=== PATIENT | female | born 1940 | race Caucasian/White ===

== ENCOUNTER 2017-08-19 06:15 | Inpatient (IN) | payer MEDICARE ==
[~2017-08-19] VITALS: Ht 162.6 cm; Wt 73.5 kg
[2017-08-19 06:15] VITALS: BP 104/49
[~2017-08-19 06:15] MED LIST: ACTOS 30 MG TAB30 M1; ACTOS 30 MG TAB30 M1 PO; ACULAR LS5 ML OPHTHALMIC; ALBUTEROL INH; ALTACE 1.25 M1.25 M1 PO; ALTACE2.5 MG PO; ARICEPT 5 MG TAB5 MG PO; ASPIRIN EC81 M1 PO; ASTELIN30 ML; ASTELIN30 ML INH; ASTEPRO205.5 MCG/ NASAL; ASTEPRO205.5 MCG/ NS; ATORVASTATIN CA40 MG PO; AVELOX 400 MG400 M1 PO; AZITHROMYCIN 2250 MG PO; CALCIUM 600 +1 EAC1 PO; CALCIUM 600 +1 EAC5 PO; CEFDINIR300 MG PO; CEPHALEXIN 500500 M3 PO; COLACE CLEAR50 MG PO; DICLOFENAC SODI75 MG PO; DIFLUCAN200 MG PO; DUONEB 2.5-0.5 M3 ML INH; ELIQUIS5 MG PO; FLEXERIL PO; FLONASE 0.05%50 MCG INH; FLONASE 0.05%50 MCG NASAL; GABAPENTIN 100100 MG PO; GLUCOPHAGE500 MG PO; GLYBURIDE 1.21.25 M1 PO; GLYBURIDE 2.52.5 MG PO; HYDROCODONE-AP1 EAC6 PO; IBUPROFEN 600600 M1 PO; INTEGRA PLUS C1 EAC1 PO; ISOSORBIDE MONO30 M1 PO; KEFLEX500 MG PO; LASIX 20 MG TAB20 MG PO; LEVAQUIN 500 M500 M2 PO; LIDOCAINE1 EACH TRANSDERM; LIDOCARE1 EACH TOP; LISINOPRIL5 MG PO; MEDROLDOSEPACK PO; MILK OF MA400 MG/5 M PO; MIRALAX17 GM PO; MOBIC7.5 M1 PO; MUCINEX TA600 MG/TA1 PO; MUCINEX1200 MG PO; MUCINEX600 MG PO; NABUMETONE 500500 M1 PO; NITROGLYCERIN0.4 MG SUBLING; NORCO 5-325 TA1 EACH PO; NYSTATIN100000 UNI SW&SWALLOW; OMEPRAZOLE20 M2 PO; ONDANSETRON HCL4 M2 PO; PACERONE 200 M200 M1 PO; PENTOXIFYLLINE400 MG PO; PREDNISONE 10 M10 M1 PO; PREDNISONE 10 M10 MG PO; PREDNISONE 20 M20 M1 PO; PREDNISONE 5 MG5 M1 PO; PREDNISONE50 MG PO; PROAIR HFA8.5 GM PO; PROMETHAZINE D480 ML PO; PROTONIX 20 MG20 M1 PO; RAMIPRIL PO; SINGULAIR 10 MG10 M1 PO; SPIRIVA INH; SYMBICORT160 MCG/4. INH; THEO-24200 MG PO; THEOPHYLLINE S200 M1 PO; TOBRAMYCIN SULFA5 ML; TOPROL XL25 MG PO; TYLENOL325 MG PO; VALIUM5 MG PO; VICODIN 5-5001 EACH PO; VISION VITAMIN1 EAC1 PO; VITAMIN D1000 UNI1 PO; ZOCOR40 MG PO; ZOFRAN4 MG PO; ZPAK PO
[2017-08-19 07:06] LABS: HEMATOCRIT 28.6 % (37.0-47.0); HEMOGLOBIN 8.9 gm/dL (12.0-15.0); MCH 25.7 pg (26.0-34.0); MCHC 31.1 g/dL (28.0-37.0); MCV 82.6 fL (80.0-100.0); MPV 7.6 fl. (7.2-11.1); NUCLEATED RBCS 0 /100WBC; PLATELET COUNT* 538 thou/uL (150-400); RBC 3.46 mil/uL (4.20-5.00); RDW-CV 19.9 % (10.5-14.5); WBC 21.9 thou/uL (4.0-11.0)
[2017-08-19 07:08] LABS: CALCIUM 9.2 mg/dL (8.5-10.1); CREATININE 1.1 mg/dL (0.6-1.3); POTASSIUM 3.4 mmol/L (3.5-5.1)
[2017-08-19 07:09] LABS: PROTIME 10.2 Seconds (9.20-11.50)
[2017-08-19 07:19] LABS: ALBUMIN 2.6 g/dL (3.4-5.0); TOTAL BILIRUBIN 0.3 mg/dL (<0.1-1.0)
[2017-08-19 07:41] LABS: ABSOLUTE LYMPHOCYTES 2.4 thou/uL (0.8-5.3); ABSOLUTE MONOCYTES 1.3 thou/uL (0.0-1.2); ABSOLUTE NEUTROPHILS 18.2 thou/uL (1.6-8.1); PLATELET ESTIMATE ADEQUATE
[2017-08-19 08:06] LABS: URINE BILIRUBIN NEGATIVE (Negative); URINE BLOOD 1+ (Negative); URINE CLARITY CLOUDY; URINE COLOR YELLOW; URINE GLUCOSE-RANDOM NEGATIVE (Negative); URINE KETONES NEGATIVE (Negative); URINE PROTEIN TRACE (Negative); URINE UROBILINOGEN 0.2 E.U./dl (0.2-1.0)
[2017-08-19 08:08] LABS: URINE LEUKOCYTES-REFLEX 2+ (Negative); URINE NITRITE-REFLEX POSITIVE (Negative)
[2017-08-19 08:15] LABS: HYALINE CASTS 0-3 Few /LPF (None Seen); SQUAMOUS 4-10 Moderate /LPF (0-3)
[2017-08-19 08:16] LABS: AMORPHOUS URATES Moderate /LPF (None Seen); BACTERIA-REFLEX >30 Many /HPF (None Seen); URINE RBC 0-2 Rare /HPF (0-2); URINE WBC-REFLEX >25 Many /HPF (0-5)
[2017-08-19 08:45] VITALS: BP 95/50
[2017-08-19 10:00] VITALS: BP 105/47
--- NOTE | 2017-08-19 15:40 | NUR ---
PATIENT IS A NEW ADMIT WITH WOUNDS RELATED TO HER FALL AND FRACTURE. i TOOK A PHOTO OF THE WOUND ON HER LEFT ELBOW AND PACED IT IN THE CHART. ORTHO SPLINTED THE RIGHT LOWER EXTRMETY IN THE EMERGENCY ROOM. I DID NOT REMOVE THE SPLINTING AND DRESSING TO TAKE PHOTOS BECAUSE I DID NOT WANT TO DISTURB THE SPLINTING AND CAUSE HER FURTHER PAIN. WILL HAVE NURSING TAKE PHOTOS WHEN DRESSING IS REMOVED AND THIS IS AN OPTION.
[2017-08-19 16:00] VITALS: BP 93/41
--- NOTE | 2017-08-19 16:59 | NUR ---
ASSUMED CARE OF PATIENT AFTER TRANSFER OF CARE. ALERT AND ORIENTED X4. AGREE WITH PREVIOUS NURSES ASSESSMENT. PATIENT HAS HAD NO COMPLAINTS OF NAUSEA THIS SHIFT. PAIN HAS BEEN MANAGED WITH PAIN MEDICATION. ASSESSED WOUND ON LEFT ELBOW AND TOOK PHOTOS FOR DOCUMENTATION. PATIENT HAS A SKIN TEAR OR WOUND ON RIGHT LOWER EXTREMITY, THIS INFORMATION WAS PASSED ALONG IN REPORT BUT PHOTO DOCUMENTATION WAS NOT COMPLETED. SEE NOTE FOR SPECIFICS ON THIS. PATIENT IS RESTING COMFORTABLY IN BED WITH GRANDSON AT BEDSIDE AT THIS TIME. HOURLY ROUNDS HAVE BEEN MAINTAINED. CALL LIGHT IS WITHIN REACH. NURSING WILL CONTINUE TO MONITOR.
[2017-08-19 21:15] VITALS: BP 103/35
[2017-08-20 04:22] VITALS: BP 111/40
--- NOTE | 2017-08-20 05:12 | NUR ---
Alert and oriented x 4. She is on bedrest and has a right femur fracture. She has right leg in long splint with acewrap and it's intact and elevated. Left leg has 2+ pitting edema and she states that shehas a history of CHF. Her lungs are coarse and wheezing she did have a recent pneumonia and has COPD. She wears home O2 at 2L n/c, she has required 4L n/c just to keep sat at 92%. Her BP was very low it was reported to and orders were recieved. After IVF bolus BP has improved. She's had pain meds x 2. She voids per bedpan. She has slept intermittenly.
[2017-08-20 06:59] VITALS: BP 111/40
--- NOTE | 2017-08-20 07:00 | NUR ---
CALLED DR. PADILLA TO INFORM HIM OF POSITIVE UA, AND LAB RESULTS. PATIENT MAY HAVE SURGERY TODAY. NEEDING CLEARANCE. LEVRAMANDEEP ORDERED.
[2017-08-20 07:52] VITALS: BP 108/52
[2017-08-20 10:19] VITALS: BP 111/36; BP 119/43; BP 122/46; BP 130/68; BP 134/72
--- NOTE | 2017-08-20 11:06 | NUR ---
INFORMED DR. PADILLA THAT PATIENT DOES HAVE SAKSHI CRACKLES IN LOWER LOBES. PATIENT CURRENTLY RECIEVING 1 UNIT PRBC'S. PATIENT PLACED BACK TO 4L O2 FROM 2L. DR. PADILLA WILL ADD LASIX POST TRANSFUSION.
--- NOTE | 2017-08-20 13:30 | NUR ---
SPOKE WITH MARIAH IN PACU. INFORMED MARIAH PATIENT WOULD BE GETTING 40MG IV LASIX PRIOR TO TRANSFER TO PACU. ALSO INFORMED HER PATIENT IS REQUIRING 6L O2 TO KEEP SATS >92%. SAT ON 4L 86%. PATIENT SOB IN THE BED. DR. PADILLA INFORMED. BLOOD TRANSFUSION COMPLETE.
--- NOTE | 2017-08-20 14:11 | NUR ---
PATIENT TRANSFERRED TO SURGERY AT THIS TIME.
--- NOTE | 2017-08-20 14:17 | NUR ---
UNABLE TO SEE PT.TODAY. SHE WAS OFF THE FLOOR IN SURGERY.
[2017-08-20 14:37] LABS: HEMATOCRIT 33.3 % (37.0-47.0); HEMOGLOBIN 10.7 gm/dL (12.0-15.0)
--- NOTE | 2017-08-20 15:15 | CON ---
[address] [address] CONSULTATION Name: MAVIS RIZZO Room: [address] IN [facility]#: [id number] Admission: 08/19/17 Attend Phys: Ryder Diaz Discharge: Date of : 44 Report #: [id number] THIS REPORT FOR: //name// CC: Ajay Cisse DICTATED BY: Osito Falk DO DATE OF SERVICE: 08/19/2017 REASON FOR CONSULTATION: Right distal femur fracture. HISTORY OF PRESENT ILLNESS: The patient is a pleasant 77-year-old female who presented to the Emergency Department this morning with acute onset of pain just above her right knee after she had a fall this morning. She was walking to the bathroom when her walker slid out in front of her. She fell directly onto her right side. She was unable to bear weight. She felt a pop just above her knee. She was brought to the hospital where x-rays were taken. She was found to have a distal femur fracture for which our services are consulted. She currently denies any numbness or tingling down her right leg. She denies any inability to move her right lower extremity. She does complain of some mild left ankle and left shoulder pain. Of note, she just finished a stay at [facility] where she was recovering from pneumonia. PAST MEDICAL HISTORY: Pneumonia, macular degeneration, breast cancer, osteoporosis, plantar fasciitis, chronic obstructive pulmonary disease, congestive heart failure. PAST SURGICAL HISTORY: Right total hip arthroplasty 01/[address] Forrest, lumpectomy, hysterectomy, carpal tunnel bilaterally. FAMILY HISTORY: Noncontributory. SOCIAL HISTORY: Denies any alcohol or tobacco use. REVIEW OF SYSTEMS: A 12-point review of systems otherwise negative except for the above-mentioned HPI. MEDICATIONS: Available in the [facility]. ALLERGIES: PEANUTS, PENICILLIN, SULFA, CODEINE, AND MORPHINE. PHYSICAL EXAMINATION: GENERAL: Alert and oriented, no acute distress. HEENT: Head normocephalic, atraumatic. Eyes: Extraocular motion intact. Ears are normal. Mouth, [place] [address] CONSULTATION Name: MAVIS RIZZO Room: [address]#: [id number] Admission: 08/19/17 Attend Phys: Ryder Diaz Discharge: Date of : 44 Report #: [id number] NECK: Supple. CARDIOVASCULAR: Cap refill brisk. ABDOMEN: Soft. MUSCULOSKELETAL: The right lower extremity demonstrates soft thigh compartments as well lower extremity compartment. She is able to plantarflex and dorsiflex and move her big toe actively and passively without pain. Sensation is intact in the superficial and deep peroneal nerve distributions as well as tibial nerve distribution. There is some generalized swelling in the area of the right distal femur as well as tenderness to palpation in this area. Mild to moderate effusion is present about the knee. There is a small abrasion of the right knee. Otherwise, global musculoskeletal exam reveals some mild tenderness with left ankle range of motion as well as left shoulder; however, range of motion is full with minimal discomfort. IMAGING: X-rays of the right femur demonstrate a previous well aligned right total hip prosthesis. There is a comminuted supracondylar distal femur fracture with an intra-articular T-shaped split. Alignment is overall acceptable. It is moderately displaced. X-rays of the left shoulder and left ankle demonstrate some mild to moderate degenerative change without any obvious fracture. IMPRESSION: 1. Right comminuted intraarticular supracondylar distal femur fracture. 2. History of right total hip arthroplasty. 3. Osteoporosis. PLAN: At this time, we will place the patient in a posterior long leg splint and obtain full length femur films for operative planning. She currently is on Eliquis, which prevents from doing surgery today. We will have her admitted and seen by the Medicine Service. We will make her n.p.o. after midnight. She will be nonweightbearing. Once medically cleared for surgery, we will plan on operative fixation of her right distal femur. <ELECTRONICALLY SIGNED> By: Luis Gurrola DO 08/20/17 1515 1340 [id number] Gurrola DO /nt
--- NOTE | 2017-08-20 15:47 | EKG ---
[place] [address] ELECTROCARDIOGRAM REPORT Name: MAVIS RIZZO Room: [address] ADM IN .R.#: [id number] Admission: 08/19/17 Attend Phys: Ryder Diaz Discharge: Date of : 44 Report #: [id number] THIS REPORT FOR: //name// [facility] ED Test Date: 2017-08-19 Test Time: 08:42:04 Pat Name: MAVIS RIZZO Department: Room: [facility] Gender: F Biztalk Consultant: : 1940 Requested By: Cal Paez Order Number: [id number] MD: Mohan Grimaldo Measurements Intervals Mack Rate: 101 P: 86 VT: 127 QRS: 31 QRSD: 74 T: QT: 397 QTc: 515 Interpretive Statements Sinus tachycardia Ventricular premature complex Borderline T wave abnormalities Prolonged QT interval Baseline wander in lead(s) V2 Compared to ECG 07/02/2017 09:09:48 T-wave abnormality now present Prolonged QT interval now present Electronically Signed On 08-20-2017 15:47:09 DIRECTOR OF EVENTS by Mohan Grimaldo [email or web address] <ELECTRONICALLY SIGNED> By: Mohan Grimaldo MD, [facility] 08/20/17 1547 0842 [id number] Mohan Grimaldo MD, [facility] /EPI
[2017-08-20 16:00] VITALS: BP 123/75
--- NOTE | 2017-08-20 18:00 | NUR ---
PATIENT TRANSFERRING TO ROOM 310 POST OP. REPORT CALLED TO LAURA ZAFAR.
[2017-08-20 19:15] VITALS: BP 125/45
--- NOTE | 2017-08-20 20:04 | NUR ---
PATIENT TO ROOM 310 @ 1915, A/O X 4, DROWSY FROM PACU, FAMILY AT BEDSIDE. REPORT RECEIVED AT BEDSIDE, C/O DISCOMFORT TO LEFT ANKLE, RIGHT LEG, LEFT ELBOW, LEFT SHOULDER, SECONDARY TO FALL AT HOME ON 08/19. RECENTLY DISCHARGED FROM [facility] [place] WHEN TREATED FOR PNEUMONIA, FOLLOWED BY SKILLED STAY AT [facility], DISCHARGED TO HOME ON 08/18, FELL MORNING OF 08/19, RIGHT FEMUR FRACTURE, ORIF THIS AFTERNOON. PRESENTED ON 5L02NC, 93%, OCC NONPROD COUGH, LUNGS DIMINISHED, CONTINUOUS PULSE OX PLACED BY RT. OXYGEN DECREASED TO 3LO2NC BY RT. PLACED ON TELE MONITOR, ST WITH PAC/PVC NOTED. VITAL SIGNS STABLE, SOFT TISSUE SWELLING NOTED TO LEFT ANKLE/FOOT, PULSES PRESENT IN BILAT DORSALIS PEDIS. MAHOGANY ICE CHIPS IN PACU, LAST ACCUCHECK WAS 241. LAST BM 08/17, BASELINE CONTINENT OF URINE WITH USE OF BEDPAN, DURAN PLACED IN PRE-OP, ONE LITER OUT SINCE PLACEMENT, CLOUDY W/ SEDIMENT. IV ABT SCHEDULED FOR UTI. SKIN TEAR TO LEFT ELBOW DRESSED, NOT OBSERVED. 20G TO LEFT FOREARM @ SL. REPORT GIVEN TO NIGHT FIT NURSE, CALL LIGHT IN REACH.
[2017-08-21] VITALS: BP 136/48
[2017-08-21 04:00] VITALS: BP 132/55
[2017-08-21 04:41] LABS: ABSOLUTE BASOPHILS 0.1 thou/uL (0.0-0.2); ABSOLUTE EOSINOPHILS 0.1 thou/uL (0.0-0.7); ABSOLUTE LYMPHOCYTES 0.9 thou/uL (0.8-5.3); ABSOLUTE MONOCYTES 0.7 thou/uL (0.0-1.2); ABSOLUTE NEUTROPHILS 10.3 thou/uL (1.6-8.1); BASOPHILS 0.6 %; EOSINOPHILS 1.1 %; HEMATOCRIT 31.6 % (37.0-47.0); HEMOGLOBIN 10.3 gm/dL (12.0-15.0); LYMPHOCYTES 7.4 %; MCH 26.5 pg (26.0-34.0); MCHC 32.4 g/dL (28.0-37.0); MCV 81.8 fL (80.0-100.0); MONOCYTES 5.7 %; MPV 8.6 fl. (7.2-11.1); NUCLEATED RBCS 0 /100WBC; POLYS 85.2 %; RBC 3.86 mil/uL (4.20-5.00); RDW-CV 18.3 % (10.5-14.5); WBC 12.1 thou/uL (4.0-11.0)
[2017-08-21 04:56] LABS: PLATELET COUNT* 328 thou/uL (150-400)
[2017-08-21 04:59] LABS: CALCIUM 8.1 mg/dL (8.5-10.1); CREATININE 0.7 mg/dL (0.6-1.3); POTASSIUM 3.5 mmol/L (3.5-5.1)
[2017-08-21 07:40] VITALS: BP 125/39
[2017-08-21 07:44] VITALS: BP 120/33
--- NOTE | 2017-08-21 07:44 | NUR ---
PT SLEPT MOST OF SHIFT. ASSESSMENT DOCUMENTED. MEDS GIVEN PER E-SEP. IV PATENT. PT REPORTED 8/10 PAIN, PAIN MEDS GIVEN PER E-MAR. PT STATED THE PAIN MEDS WERE WORKING GOOD. PT REPOSITIONED THROUGH NIGHT. CONTINUOUS PULSE OX ON ALL SHIFT. O2 DECREASED FROM 5L TO 3L THIS SHIFT. DRESSING ON LEG REMAINED C/D/I. NO CONCERNS AT THIS TIME.
--- NOTE | 2017-08-21 14:12 | NUR ---
SW met with pt to complete initial assessment, introduce self, and SW role. Pt alert and oriented. Pt reports that she was recently at [facility] and then fell at home a couple days after dc from SNF. Pt hopes to be able to return to her home/apt at [facility] at ma. Pt has 4 dtrs in the area. Pt says that she is out of the 100% covered SNF Medicare days and that she is in her copay days. SW called and left a message with Johann at [facility] to confirm information. Pt has RW and oxygen at night at home. Pt also had history with [facility] and pt says that she will not return there as she did not like the experience there. Pt has history with [facility] and would prefer to use them again at ma. SW to continue to follow to assist with safe dc planning.
--- NOTE | 2017-08-21 16:00 | NUR ---
PATIENT HAS SAT IN RECLINER ALL SHIFT. PRN TRAMADOL GIVEN FOR RIGHT LEG PAIN. ORAL AGENTS GIVEN WITH MEALS FOR BLOOD SUGAR ORDERED. IV SL, SCHED ABX INFUSED. DR. PADILLA WAS NOTIFIED OF URINE CULTURE RESULTS, NO NEW ORDERS RECEIVED. DR. PADILLA WAS NOTIFIED THIS AM FOR LOW DIASTOLIC PRESSURE, OK TO HOLD BP MEDS THIS AM. AMIODARONE WAS GIVEN PER DR. LAY ORDERS. PATIENT HAD VISITIORS THIS AM AFTER PT. DURAN DRAINING YELLOW URINE.
[2017-08-21 16:04] VITALS: BP 115/50
[2017-08-21 22:51] VITALS: BP 111/48
[2017-08-22] VITALS (7 sets, daily range): BP systolic 88–112; BP diastolic 40–92
[2017-08-22 05:49] LABS: CALCIUM 8.3 mg/dL (8.5-10.1); CREATININE 0.7 mg/dL (0.6-1.3); POTASSIUM 3.7 mmol/L (3.5-5.1)
--- NOTE | 2017-08-22 05:50 | NUR ---
ASSESSMENT COMPLETE. PT SLEPT MOST OF THE NIGHT WITHOUT CONCERNS. PT GIVEN PRN PAIN MEDICATION ONCE WITH RELIEF REPORTED. PT IS ON 3L PER NC WITH ADEQUATE SATS. PT TURNED Q2 FOR SKIN INTEGRIT. RIGHT LEG HAS IMMOBILIZER IN PLACE, ELEVATED WITH PILLOW. SEE ASSESSMENT AND VITALS FOR OTHER DETAILS. CALL LIGHT WITHIN REACH, BED ALARM ON. WILL CONTINUE TO MONITOR
[2017-08-22 05:58] LABS: ABSOLUTE EOSINOPHILS 0.1 thou/uL (0.0-0.7); ABSOLUTE LYMPHOCYTES 1.3 thou/uL (0.8-5.3); BASOPHILS 0.3 %; EOSINOPHILS 0.7 %; HEMATOCRIT 32.5 % (37.0-47.0); HEMOGLOBIN 10.2 gm/dL (12.0-15.0); LYMPHOCYTES 10.8 %; MCH 26.2 pg (26.0-34.0); MCHC 31.3 g/dL (28.0-37.0); MCV 83.7 fL (80.0-100.0); MONOCYTES 7.7 %; MPV 8.6 fl. (7.2-11.1); NUCLEATED RBCS 0 /100WBC; PLATELET COUNT* 372 thou/uL (150-400); POLYS 80.5 %; RBC 3.88 mil/uL (4.20-5.00); RDW-CV 18.3 % (10.5-14.5); WBC 12.4 thou/uL (4.0-11.0)
--- NOTE | 2017-08-22 15:55 | 2DMMODE ---
[place] [address] 2 D/M-MODE ECHOCARDIOGRAM Name: MAVIS RIZZO Room: [address] IN [facility]#: [id number] Admission: 08/19/17 Attend Phys: Braden Cisse Discharge: Date of : 44 Date of Service: 08/22/17 1554 Report #: [id number] THIS REPORT FOR: //name// APPROVED REPORT Study performed: 08/22/2017 14:03:50 EXAM: Comprehensive 2D, Doppler, and color-flow Echocardiogram Patient Location: In-Patient Room #: 310 Status: routine BSA: 1.76 HR: 140 bpm BP: 107/48 mmHg Rhythm: svt Other Information Study Quality: Good Indications SVT 2D Dimensions LVEF(%): 22.06 (>50%) IVSd: 10.90 (7-11mm) LVOT Diam: 21.17 (18-24mm) LVDd: 41.20 mm PWd: 10.79 (7-11mm) Ascending Ao: 29.14 (22-36mm) LVDs: 37.10 (25-40mm) Aortic Root: 31.11 mm Logan's LVEF: 22.06 % Volumes Left Atrial Volume (Systole) LA ESV Index: 23.20 mL/m2 Aortic Valve AoV Peak Juan R.: 1.40 m/s AO Peak Gr.: 7.83 mmHg LVOT Max P.73 mmHg AO Mean Gr.: 4.45 mmHg LVOT Mean P.11 mmHg LVOT Max V: 0.83 m/s AO V2 VTI: 15.82 cm LVOT Mean V: 0.47 m/s INDIRA (VTI): 2.24 cm2 LVOT V1 VTI: 10.08 cm TDI Lateral E' Juan R.: 0.10 m/[place] [address] 2 D/M-MODE ECHOCARDIOGRAM Name: MAVIS RIZZO Room: [address] IN [facility]#: [id number] Admission: 08/19/17 Attend Phys: Braden Cisse Discharge: Date of : 44 Date of Service: 08/22/17 1554 Report #: [id number] Pulmonary Valve PV Peak Juan R.: 0.92 m/s PV Peak Gr.: 3.42 mmHg Tricuspid Valve TR Peak Gr.: 22.41 mmHg RVSP: 27.00 mmHg Left Ventricle The left ventricle is normal size. There is normal LV segmental wall motion. There is normal left ventricular wall thickness. Left ventricular systolic function is normal. The left ventricular ejection fraction is within the normal range. LVEF is 60-65%. This study is not technically sufficient to allow evaluation of the LV diastolic function due to atrial fibrillation. Right Ventricle Right ventricle is at the upper limits of normal. The right ventricular systolic function is normal. Atria Left atrium is at the upper limits of normal. The right atrium size is normal. Aortic Valve The aortic valve is normal in structure. No aortic regurgitation is present. There is no aortic valvular stenosis. Mitral Valve Mild mitral annular calcification. Trace mitral regurgitation. No evidence of mitral valve stenosis. Tricuspid Valve The tricuspid valve is normal in structure. Mild tricuspid regurgitation. The RVSP is ___27____ mmHg. Pulmonic Valve The pulmonary valve is normal in structure. There is no pulmonic valvular regurgitation. Great Vessels The aortic root is normal in size. IVC is normal in size and collapses with >50% inspiration Pericardium There is no pericard[place] [address] 2 D/M-MODE ECHOCARDIOGRAM Name: MAVIS RIZZO Room: [address]#: [id number] Admission: 08/19/17 Attend Phys: Braden Cisse Discharge: Date of : 44 Date of Service: 08/22/17 1554 Report #: [id number] <Conclusion> The left ventricle is normal size. There is normal left ventricular wall thickness. Left ventricular systolic function is normal. The left ventricular ejection fraction is within the normal range. LVEF is 60-65%. This study is not technically sufficient to allow evaluation of the LV diastolic function due to atrial fibrillation. Right ventricle is at the upper limits of normal. The right ventricular systolic function is normal. Left atrium is at the upper limits of normal. The aortic valve is normal in structure. Mild mitral annular calcification. Trace mitral regurgitation. The tricuspid valve is normal in structure. Mild tricuspid regurgitation. The RVSP is ___27____ mmHg. IVC is normal in size and collapses with >50% inspiration There is no pericardial effusion. There is normal LV segmental wall motion. <ELECTRONICALLY SIGNED> By: Mohan Grimaldo MD, FACC 08/22/17 1554 1554 1554 Mohan Grimaldo MD, FACC /INF
--- NOTE | 2017-08-22 16:21 | EKG ---
[place] [address] ELECTROCARDIOGRAM REPORT Name: MAVIS RIZZO Room: [address] ADM IN M.R.#: [id number] Admission: 08/19/17 Attend Phys: Ryder Diaz Discharge: Date of : 44 Report #: [id number] THIS REPORT FOR: //name// [facility] Test Date: 2017-08-22 Test Time: 10:11:40 Pat Name: MAVIS CARRENOVIS Department: Room: [address] Gender: F Auto Refinisher: : 1940 Requested By: Braden Cisse Order Number: [id number] MD: Mohan Grimaldo Measurements Intervals Cougar Rate: 107 P: 81 W[place]: 129 QRS: 50 QRSD: 76 T: 102 QT: 338 QTc: 451 Interpretive Statements Sinus tachycardia Supraventricular bigeminy Borderline low voltage, extremity leads Compared to ECG 08/19/2017 08:42:04 Atrial premature complex(es) now present Ventricular premature complex(es) no longer present T-wave abnormality no longer present Prolonged QT interval no longer present Electronically Signed On 08-22-2017 16:20:52 TANK TRUCK DRIVER by Mohan Grimaldo [email or web address] <ELECTRONICALLY SIGNED> By: Mohan Grimaldo MD, FAC 08/22/17 1620 1011 1011 Mohan Grimaldo MD, FAC /EPI
--- NOTE | 2017-08-22 16:35 | NUR ---
PATIENT TRANSFERRED TO [facility] AT THIS TIME PER CARDIOLOGY ORDERS. REPORT CALLED TO LAURA WONG. PATIENT LOW BLOOD SUGARS TREATED THIS AM WITH GLUCOSE GEL. PATIENT WAS ABLE TO EAT BREAKFAST AND LUNCH WITHOUT DIFFICULTY. DR. PADILLA NOTIFIED THIS AM OF IRREGULAR HEART RATE, BLOOD PRESSURE, AND LOW BLOOD SUGARS. EKG ORDERED AND RESULTS GIVEN TO DR. PADILLA. CONS FOR CARDIOLOGY PLACED AND SEEN TODAY. PATIENT GIVEN IV DIG AND IV CARDIZEM PUSH PER CARDIOLOGY ORDERS. CARDIOLOGY AWARE OF PRESSURES PRIOR TO DRUGS BEING PUSHED. NS AT 70MLS/HR STARTED THIS SHIFT FOR MINIMAL OUTPUT NOTED TO DURAN CATHETER. PATIENT DID HAVE US OF REID LEGS AND CTA OF CHEST, BOTH OF WHICH WERE NEGATIVE. 02 3L NC REMAINS IN PLACE WITH 02 SAT 92%. DRESSING CHANGED TO LEFT ELBOW THIS AM. TURN Q2. DATA LEAD SHOWING IRREGULAR RHYTHM, TACHYCARDIAC WITH PVC'S NOTED.
--- NOTE | 2017-08-22 18:53 | NUR ---
PT DOWN HERE FROM 3W REPORT GIVEN FROM JAZMYN FORD GTT STARTED AT 5MG/H PER DELANEY PARI MUTUEL TICKET CASHIER TELEPHONE ORDER PT LOW PRESSURE AT 80S/40S-50S PULSE IN 120S-130S PT C/O PAIN TO RIGHT LEG/FEMUR AND TRAMADOL GIVEN FLUIDS RUNNING AT 50ML/H TO HELP WITH BP WELL BUT SWELLING NOTED AROUND IV PT IS A HARD STICK AND JORDIN DOWN IN INFUSION LAB DID IV MAY NEED TO CHANGE SOON BLOOD SUGARS ARE STILL LOW ABOUT TO GIVE GLUCOSE GEL TUBE AGAIN 2 THINGS OF JUICE WERE GIVEN ALSO AND ONLY WENT UP FROM 61 TO 63 FAMILY CAME IN AND UPSET ABOUT NO ONE INFORMING THEM OF PT COMING DOWN TO CARDIOLOGY FLOOR ALSO UPSET ABOUT NO COMMUNICATION FROM CARDIOLOGY ON FOLLOWING UP ETC. DISCUSSED WITH FAMILY THAT PT PROBABLY WENT INTO A-FIB AFTER SURGERY BECAUSE SHE HAS A HISTORY OF IT STRESS ON THE BODY CAN DO THAT FAMILY THOUGHT IT WAS FROM BREATHING TX'S WELL DISCUSSED THAT CARDIOLOGY LOOKS THOROUGHLY THROUGH THE MEDS AND THEY WERE HELD THE LAST TWO TIMES PT IS ON 3L NC AND WEARS 2L NC AT HOME FAMILY JUST FRUSTRATED ABOUT THE LACK OF COMMUNICATION WITH STAFF THIS NURSE REASSURED THAT ALL STAFF WOULD BE BETTER AND THAT IT WOULD BE COMMUNICATED THROUGH NURSE'S NOTES, REPORT, AND TO CHARGE/WHITE WORK CLEANER TO PLEASE TELL US IF IT HAPPENS AGAIN PT IS NONWEIGHT BEARING TO RLE FC IN UNTIL PT GETS UP
[2017-08-23] VITALS: BP 100/48
[2017-08-23 04:00] VITALS: BP 111/54
[2017-08-23 05:24] LABS: HEMATOCRIT 26.6 % (37.0-47.0); HEMOGLOBIN 8.9 gm/dL (12.0-15.0); MCH 27.6 pg (26.0-34.0); MCHC 33.5 g/dL (28.0-37.0); MCV 82.2 fL (80.0-100.0); MPV 8.3 fl. (7.2-11.1); NUCLEATED RBCS 0 /100WBC; PLATELET COUNT* 323 thou/uL (150-400); RBC 3.23 mil/uL (4.20-5.00); RDW-CV 17.8 % (10.5-14.5); WBC 11.3 thou/uL (4.0-11.0)
[2017-08-23 05:47] LABS: CALCIUM 7.6 mg/dL (8.5-10.1); CREATININE 0.7 mg/dL (0.6-1.3)
[2017-08-23 06:33] LABS: ABSOLUTE LYMPHOCYTES 0.9 thou/uL (0.8-5.3); ABSOLUTE MONOCYTES 0.2 thou/uL (0.0-1.2); ABSOLUTE NEUTROPHILS 10.2 thou/uL (1.6-8.1); ANISOCYTOSIS 1+; PLATELET ESTIMATE ADEQUATE; POIKILOCYTOSIS 1+
--- NOTE | 2017-08-23 08:00 | NUR ---
AM ASSESSMENT COMPLETE, DEFER TO COMPUTER CHARTING. RESIDENTIAL RECYCLE DRIVER TRACKING SR. ALERT ORIENTED, LUNGS CRACKLES - DIMINISHED, 02 ON 2L PER NC-HOB ELEVATED. DENIES PAIN, DIZZINESS AT THIS TIME. DOES REPORT FEELING NAUSEATED, WILL GIVE REPEAT MED FOR NUASEA AND CONTINUE TO MONITOR. CALL LIGHT WITHIN REACH.
--- NOTE | 2017-08-23 08:03 | NUR ---
ASSUMED CARE OF PT AT 1930, NURSING ASSESSMENT COMPLETED AT START OF SHIFT, PT DENIES PAIN THIS SHIFT. PT HR IN THE 120'S - 130'S AT START OF SHIFT. PT'S CARDIZEM DRIP TITRATED TO 10 MG/HR AT 2330, PT HR DECREASED TO 80'S-90'S. HOURLY ROUNDING COMPLETED, FALL PRECAUTIONS IN PLACE, CALL LIGHT WITHIN REACH. IV FLUIDS INFUSING WITH CARDIZEM DRIP. PT PROGRESSING TOWARDS GOALS THIS SHIFT.
[2017-08-23 12:22] VITALS: BP 85/30
--- NOTE | 2017-08-23 14:27 | NUR ---
CONTINUE TO FOLLOW FOR DC PLANNING. MET WITH PT AND SPOKE WITH SAMIR/STEPHANY OVER THE PHONE. PT AND DTR AWARE THAT SHE MAY NOT BE ABLE TO RETURN HOME WITH HH SHE IS NOT INDEPENDENT ENOUGH. PT HAS BEEN TO SNF AT [facility] AND [facility]. DOESN'T WANT [facility] AGAIN BUT IS OPEN TO [facility], ALTHOUGH SHE IS AWARE SHE IS INTO HER COPAY DAYS AND AFRAID SHE CANNOT AFFORD IT. PT DOESN'T HAVE A SECONDARY INSURANCE. DTR VOICED CONCERN THAT PT MAY NEED TO CONSIDER AT DIFFERENT LIVING SITUATION AND PLANS TO DISCUSS THIS WITH PT AND HER SISTERS. (PT HAS 4 DTRS.) ALL OF THE DTRS WORK DURING THE DAY AND STEPHANY DOUBTS ANY OF THEM COULD PROVIDE 24/7 CARE FOR PT, AT LEAST NOT IN THE DAYTIME. DISCUSSED REHAB CONSULT WITH PT AND DTR. AWAIT REHAB DECISION, MESSAGE LEFT FOR DESIRAE/ANNA. SPOKE WITH JOSEF/[facility], SHE STATED THEY WOULD CONSIDER TAKING PT BACK TO SNF AT DC BUT WOULD NEED TO DISCUSS THE FINANCIAL PIECE AND PT/DTR MAY WANT TO CONSIDER APPLYING FOR MEDICAID. DISCUSSED MEDICAID WITH PT AND SHE STATED SHE THINKS SHE 'MAKES TOO MUCH.' WILL FOLLOW
[2017-08-23 15:57] VITALS: BP 105/41
--- NOTE | 2017-08-23 15:59 | NUR ---
MONEY LAUNDERING INVESTIGATOR TRACKING SR. GIVEN 1 PO TAB TO ASSIST WITH COMPLAINTS OF RIGHT LEG PAIN EARLIER, REPORTING PARTIAL RELIEF WHEN REASSESING PAIN CONTROL. BP LOW EARLIER - IV CARDIZEM DC'D AND PO CARDIZEM GIVEN PER ORDERS, BP IMPROVING. UP IN CHAIR AT THIS TIME WITH CALL LIGHT WITHIN REACH. IV FLUIDS INFUSING. NO COMPLAINTS OF CHEST PAIN, NAUSEA OR ANY DISCOMFORT AT THIS TIME. CALL LIGHT REMAINS WITHIN REACH, WILL CONTINUE WITH PLAN OF CARE.
--- NOTE | 2017-08-23 17:17 | EKG ---
[place] [address] ELECTROCARDIOGRAM REPORT Name: MAVIS RIZZO Room: [address] ADM IN .R.#: [id number] Admission: 08/19/17 Attend Phys: Ryder Diaz Discharge: Date of : 44 Report #: [id number] THIS REPORT FOR: //name// [facility] Test Date: 2017-08-23 Test Time: 08:32:55 Pat Name: MAVIS SO Department: Room: [facility] Gender: F Commissary Superintendent: : 1940 Requested By: Braden Cisse Order Number: [id number] Reading MD: Min Hill Measurements Intervals Burt Rate: 84 P: 76 SD: 137 QRS: 55 QRSD: 69 T: QT: 454 QTc: 537 Interpretive Statements Sinus rhythm Low voltage, extremity and precordial leads Nonspecific T abnrm, anterolateral leads Prolonged QT interval Compared to ECG 08/22/2017 10:11:40 Prolonged QT interval now present Sinus tachycardia no longer present Atrial premature complex(es) no longer present Electronically Signed On 08-23-2017 17:17:04 CADDYMASTER by Min Hill [email or web address] <ELECTRONICALLY SIGNED> By: Min Hill MD, FACC 08/23/17 1717 0832 0832 Min Hill MD, FACC /EPI
[2017-08-23 20:00] VITALS: BP 101/38
[2017-08-24] VITALS: BP 82/31
[2017-08-24 02:00] VITALS: BP 101/49
[2017-08-24 04:00] VITALS: BP 100/44
--- NOTE | 2017-08-24 05:28 | NUR ---
ASSUMED CARE OF PT AT 1930, NURSING ASSESSMENT COMPLETED AT START OF SHIFT, PT CONTINUES ON TELE MONITOR TRACING SR THIS SHIFT, HOURLY ROUNDING COMPLETED, CALL LIGHT WITHIN REACH. PRN PAIN MEDICATION ADMINISTERED X1 THIS SHIFT. PT SLOWLY PROGRESSING TOWARDS GOALS.
[2017-08-24 07:50] LABS: ABSOLUTE BASOPHILS 0.1 thou/uL (0.0-0.2); ABSOLUTE EOSINOPHILS 0.2 thou/uL (0.0-0.7); ABSOLUTE LYMPHOCYTES 1.3 thou/uL (0.8-5.3); ABSOLUTE MONOCYTES 0.9 thou/uL (0.0-1.2); ABSOLUTE NEUTROPHILS 9.1 thou/uL (1.6-8.1); EOSINOPHILS 1.7 %; HEMATOCRIT 25.1 % (37.0-47.0); HEMOGLOBIN 8.1 gm/dL (12.0-15.0); LYMPHOCYTES 10.9 %; MCH 26.3 pg (26.0-34.0); MCHC 32.2 g/dL (28.0-37.0); MCV 81.9 fL (80.0-100.0); MONOCYTES 8.1 %; MPV 7.8 fl. (7.2-11.1); NUCLEATED RBCS 0 /100WBC; PLATELET COUNT* 382 thou/uL (150-400); POLYS 78.3 %; RBC 3.06 mil/uL (4.20-5.00); WBC 11.7 thou/uL (4.0-11.0)
[2017-08-24 07:59] LABS: CALCIUM 7.9 mg/dL (8.5-10.1); CREATININE 0.6 mg/dL (0.6-1.3)
[2017-08-24 08:11] VITALS: BP 99/39
--- NOTE | 2017-08-24 10:40 | NUR ---
Pt was seen d/t hospital LOS. Pt was admitted for right femur fracture. PT appetite is returning per MD note. Wt hx shows stable wt hx. Pt has breakfast intake recorded of 60%. Possible d/c to SNF. Chart Reviewed. Low nutrition risk.
--- NOTE | 2017-08-24 11:26 | NUR ---
CONTINUE TO FOLLOW, MET WITH PT, 2 DTRS STEPHANY AND JENNIFER TO FURTHER DISCUSS DC PLAN. DTRS ARE LEANING TOWARD PT CONSIDERING A DIFFERENT LIVING SITUATION, THEY ARE AFRAID PT WILL NEVER BE ABLE TO RETURN TO INDEPENDENT LIVING. QUESTIONS ANSWERED ABOUT ASSISTED LIVING. HAVE ASKED JOSEF/[facility] TO COME TALK WITH THEM ABOUT SNF TO ASSISTED LIVING AND MEDICAID PAYMENT FOR USP THERE. SHE IS HERE MEETING WITH FAMILY AND PT NOW. SPOKE WITH DESIRAE/[facility]. AWAIT THERAPY EVALS. PT SEEMS TO UNDERSTAND NEED TO CONSIDER APPLYING FOR MEDICAID AND THAT SNF MAY BE THE BETTER OPTION D/T ENDURANCE AND NWB STATUS. FAXED REFERRAL TO [facility] AND AWAIT FINAL REHAB EVAL ANSWER.
[2017-08-24 16:46] VITALS: BP 119/41
--- NOTE | 2017-08-24 17:22 | NUR ---
RECEIVED CONSULT FOR POSSIBLE REHAB ADMISSION. CONSULT HAS BEEN ACKNOWLEDGED BY REEXAMINER AND DR. GORMAN. PT ADMIITED WITH RIGHT FEMUR FX S/P ORIF. PT EVALUATED BY OT TODAY AND WAS MAX A X3 FOR BED MOBILITY. DEPENDENT FOR LAB DRESSING AND BATHING, SHE WAS MAX A WITH PT FOR STAND PIVOT TRANSFERS AND IS UNABLE TO AMBULATE 2TO BEING UNABLE TO MAINTAIN NWB STATUS. SPOKE WITH CM, KRISH STATES SHE IS MEETING WITH DAUGHTERS TO DISCUSS Pt's DISCHARGE PLAN Pt WILL MOST LIKELY NOT HAVE 24/7 CARE AND HOW LONG Pt NEEDS TO BE NWB. Pt MAY BENEFIT FROM [facility] UNTIL ABLE TO WEIGHTBEAR. THANK YOU FOR THIS CONSULT
--- NOTE | 2017-08-24 19:40 | NUR ---
ASSUMED RESPONSIBILITY OF PT THIS AM PT IS ALERT AND ORIENTED BUT FORGETFUL AT TIMES C/O PAIN T/O DAY VERY WEAK WITH THERAPY EXT ASSIST X2 NEEDS WITH WALKER RLE IMMOBILIZER ON LOW IN AM BUT HIGH IN THE EVENING PICC LINE NOT PLACED TODAY INFUSION LAB COULD NOT MAKE IT MIGHT TRY TOMORROW BUT ONLY THING GOING THROUGH IV IS FLUIDS SO NOT SURE IF NEEDED PLAN TO GO TO [facility] ON SUNDAY FOR THERAPY
[2017-08-24 20:30] VITALS: BP 126/58
[2017-08-25] VITALS: BP 105/43
[2017-08-25 04:00] VITALS: BP 114/41
[2017-08-25 05:44] LABS: HEMATOCRIT 25.2 % (37.0-47.0); MCH 26.2 pg (26.0-34.0); MCHC 31.8 g/dL (28.0-37.0); MCV 82.4 fL (80.0-100.0); MPV 7.5 fl. (7.2-11.1); RBC 3.05 mil/uL (4.20-5.00); RDW-CV 18.3 % (10.5-14.5); WBC 11.8 thou/uL (4.0-11.0)
[2017-08-25 06:08] LABS: CALCIUM 8.6 mg/dL (8.5-10.1); CREATININE 0.6 mg/dL (0.6-1.3); MAGNESIUM 1.9 mg/dL (1.8-2.4); POTASSIUM 4.2 mmol/L (3.5-5.1)
--- NOTE | 2017-08-25 08:29 | NUR ---
PT A/OX4, 3L NC, SR ON THE MONITOR, BED REST AT THIS TIME, RIGHT-LE IMMOBILIZER DUE TO FEMUR FRACTURE, DURAN IN PLACE, PAIN TREATED OVER NIGHT, MEDS/ASSESSMENT PER CHARTING, HOULRY ROUNDING/FALL PRECAUTIONS IN PLACE, VSS, REPORT GIVEN TO DAY RN. INFORMED DAY RN OF MY REPORT FROM PREVIOUS DAY RN OF PT'S IV NOT RUNNING WELL ON THE PUMP AND FLUSHING SLOW, INFORMED HIM OF EDEMA TO THE RFA, AND THAT I WAS ASKED TO HAVE THE ONCOMING DAY SHIFT FIND OUT IF THEY ARE DOING THE PICC LINE THEY AREN'T ABLE TO GET IV'S ON THE PT DUE TO THE VIENS BLOW AND SHE BRUISES QUICKLY.
[2017-08-25 11:41] VITALS: BP 132/39
[2017-08-25 15:23] VITALS: BP 120/46
[2017-08-25 22:15] VITALS: BP 115/45
[2017-08-26 04:00] VITALS: BP 106/47
[2017-08-26 06:01] LABS: HEMATOCRIT 27.3 % (37.0-47.0); HEMOGLOBIN 8.7 gm/dL (12.0-15.0); MCH 26.7 pg (26.0-34.0); MCV 83.4 fL (80.0-100.0); MPV 7.6 fl. (7.2-11.1); RBC 3.27 mil/uL (4.20-5.00); RDW-CV 18.1 % (10.5-14.5); WBC 12.7 thou/uL (4.0-11.0)
[2017-08-26 07:37] LABS: CALCIUM 9.3 mg/dL (8.5-10.1); CREATININE 0.7 mg/dL (0.6-1.3); POTASSIUM 4.5 mmol/L (3.5-5.1)
--- NOTE | 2017-08-26 07:52 | NUR ---
ALERT AND ORIENTED. REMAINS NONWEIGHTBEARING TO RIGHT LOWER EXTREMITY. BRACE AND ABRIL WRAP DRESSING OVER RIGHT KNEE INCISION. RIGHT FOOT WARM AND PINK WITH GOOD CAPILLARY REFILL. DURAN CATH PATENT WITH CLEAR YELLOW URINE. DENIED NEED FOR PAIN OR NAUSEA MEDICATION. REMAIN ON O2 AT 3L/NC TO KEEP O2 SATS IN 90'S. CALL LIGHT WITHIN REACH.
[2017-08-26 08:00] VITALS: BP 140/44
[2017-08-26 11:50] VITALS: BP 104/40
[2017-08-26 15:05] VITALS: BP 105/41
--- NOTE | 2017-08-26 20:11 | NUR ---
ASSUMED CARE OF PT AT 0730. PT CONTINUES TO BE A&O X 4 AND PLEASANT. PT REPORTED THAT SHE HAD TWO BM THIS MORNING AND HER STOMACH FEELS 'MUCH BETTER' PT HAS HAD C/O PAIN IN RLE THAT WERE ADDRESSED WITH PO AND IV PRN MEDICATIONS. PT REPORTED THAT SHE HAD SOME N/V X1 TODAY AND WAS GIVEN IV ZOFRAN THAT EFFECTIVELY REDUCED HER NAUSEA TO A TOLERABLE LEVEL. PT CONTINUES TO REFUSE TO GET OUT OF BED TO USE THE CAMMODE OR BATHROOM AND INSIST ON USING THE BEDPAN. SCD'S IN PLACE AND FUNCTIONING PROPERLY. NURSING WILL CONTINUE TO MONITOR,
[2017-08-26 20:40] VITALS: BP 106/40
[2017-08-26 23:53] VITALS: BP 130/43
[2017-08-27 04:00] VITALS: BP 97/41
--- NOTE | 2017-08-27 04:43 | NUR ---
PATIENT HAS REMAINED ALERT AND ORIENTED X 4 THROUGHOUT THE SHIFT AND RESTING QUIETLY ON HOURLY ROUNDS. MULTIPLE LOOSE TO LIQUID BM'S OVERNIGHT. NO FURTHER COMPLAINT OF NAUSEA OR ABDOMINAL DISCOMFORT. IS NPO FOR ABDOMINAL US THIS AM. REPOSTIONED Q2H WITH ASSIST. RIGHT ARM REMAINS EDEMATOUS. WRAPPED IN GAUZE FROM DAYSHIFT WITH REPORTED WEEPING. DRESSING HAS REMAINED DRY TONIGHT. GENERALIZED EDEMA ALSO PRESENT. DRESSING RLE WITH ABRIL WRAP CLEAN AND DRY. RLE BRACE IN PLACE. HEELS ELEVATED UP OFF THE BED WITH SCD'S IN PLACE. MEDICATED X 1 FOR PAIN WITH ORAL MEDS TO GOOD EFFECT. O2 AT 4L/MIN NASAL CANNULA. PATIENT REPORTING SHE USES 3L/MIN AT HOME HS ONLY. VITAL SIGNS STABLE. AFEBRILE. DISCHARGE PENDING. CONTINUE TO MONITOR.
[2017-08-27 08:00] VITALS: BP 151/45
--- NOTE | 2017-08-27 11:51 | NUR ---
[facility] has a skilled bed for Pt today, waiting for Dr to round and write dc orders. Pt aware of dispostion.
[2017-08-27 12:12] VITALS: BP 110/37
--- NOTE | 2017-08-27 14:02 | NUR ---
RECEIVED REPORT. ASSUMED CARE OF PT AT O730. PT A&O X4. VSS. O2 SAT 93% ON 4L PER NC. RESEARCH NURSE IN PLACE TRACING SR. AM ASSESSMENT AND VITALS COMPLETED CHARTED. PT HAD LOW BLOOD GLUCOSE OF 32 THIS AM. DEXTROSE GIVEN DUE TO PT NPO FOR ABD U/S. RECHECK SHOWED PT CAME UP TO 151. PT COMPLETED U/S AND THEN ATE A BOX LUNCH. PT REPORTING RIGHT LEG PAIN; HAS RECEIVED PO PAIN MEDICATION WITH PARTIAL RELIEF, SEE EMAR FOR ADMINISTRATION AND REASSESSMENT. DURAN IN PLACE DRAINING LIGHT YELLOW URINE TO DD - WILL DC FOELY TODAY. RIGHT LEG IMMOBILIZER IN PLACE. NO IV ACCESS - DR QUIGLEY GAVE ORDER TO LEAVE IV OUT. DC TO [facility] PENDING CXR REULTS. DAUGHTERS VISITED THIS AM. HIGH FALL RISK PRECAUTIONS IN PLACE. CALL LIGHT IS WITHIN REACH, WILL CONTINUE TO MONITOR.
--- NOTE | 2017-08-27 14:13 | NUR ---
Pt to dc to [facility] today, pending CXR. Following.
[2017-08-27 17:21] VITALS: BP 89/27
--- NOTE | 2017-08-27 18:14 | NUR ---
VSS. O2 SAT >90% ON 4L PER NC. PT REMAINS A&O X4. GARLAND MACHINE OPERATOR REMAINS IN PLACE WITH NO CHANGES THIS SHIFT. PT COMPLETED CHEST XRAY THIS AFTERNOON - NEW LEFT BASILAR INFILTRATES NOTED. ORDERS RECEIVED TO START IV ANTIBIOTICS. IV PLACED AND ANTIBIOTICS HUNG. DURAN DISCONTINUED. PT USING BEDPAN TO VOID. PT EDUCATED ON NEED TO BEGIN GETTING OUT OF BED WITH ASSITANCE TO BEDSIDE COMMODE TO FACILITATE HEALING AND IMPORVE WELL-BEING - PT COMMUNICATED UNDERSTANDING AND STATES "I WILL TRY TO GET UP TOMORROW". PT RECEIVED IV PAIN MEDICATION WITH RELIEF. PT SHOWING POOR APPETITE AT DINNER - ONLY DRANK AN ICE CREAM SHAKE BROUGHT IN BY FAMILY. PT TURNED Q2HRS IN BED. BRUISING NOTED TO BILAT UPPER ARMS. RIGHT LEG IMMOBILIZER IN PLACE. HOURLY ROUNDING PERFORMED. FALL PRECAUTIONS ARE IN PLACE. CALL LIGHT IS WITHIN REACH. WILL CONTINUE TO MONITOR FOR DURATION OF SHIFT.
[2017-08-27 20:30] VITALS: BP 136/77
[2017-08-28 01:03] VITALS: BP 100/35
[2017-08-28 04:47] VITALS: BP 126/45
--- NOTE | 2017-08-28 04:53 | NUR ---
PT REMAIN A/OX4, SR ON THE MONITOR, 3-4 O2 NC, Q2T IN PLACE, VSS, MEDS/ASSESSMENT PER CHARTING, HOURLY ROUNDING/FALL PRECUATIONS IN PLACE, PT VOIDED MULTIPLE TIMES DURING THIS SHIFT WITH NO URINARY CONCERNS REPORTED, R-LEG BRACE REMAINS IN PLACE, LEFT CALF/R-BOOT SCD'S USED, PAIN AND NAUSEA TREATED X2 OVER NIGHT, WILL CONT TO MONITOR.
[2017-08-28 05:27] LABS: HEMATOCRIT 26.2 % (37.0-47.0); HEMOGLOBIN 8.3 gm/dL (12.0-15.0); MCH 26.6 pg (26.0-34.0); MCHC 31.8 g/dL (28.0-37.0); MCV 83.6 fL (80.0-100.0); MPV 6.7 fl. (7.2-11.1); RBC 3.14 mil/uL (4.20-5.00); RDW-CV 18.9 % (10.5-14.5); WBC 10.6 thou/uL (4.0-11.0)
[2017-08-28 05:48] LABS: ALBUMIN 1.9 g/dL (3.4-5.0); CALCIUM 8.5 mg/dL (8.5-10.1); CREATININE 0.8 mg/dL (0.6-1.3); POTASSIUM 3.9 mmol/L (3.5-5.1); TOTAL BILIRUBIN 0.4 mg/dL (<0.1-1.0); TOTAL PROTEIN 5.1 g/dL (6.4-8.2)
--- NOTE | 2017-08-28 06:32 | NUR ---
PT AM LAB DRAW SHOWED BS IN THE 50'S, PT A/OX4, NAUSIOUS, APPLE GIVEN, BS TO BE RE-CHECKED IN 15 MINUTES.
--- NOTE | 2017-08-28 06:55 | NUR ---
FOLLPW UP BS CHECK 62, PT REPORTED SHE CAN DRINK SOME MORE JUICE, APPLE JUICE PROVIDED AND WILL RE-CHECK IN 15 MINUTES.
[2017-08-28 07:30] VITALS: BP 113/41
[2017-08-28 10:45] VITALS: BP 121/41
--- NOTE | 2017-08-28 11:39 | NUR ---
UPDATE CALLED TO MILLIE/MILES, PT NOT READY FOR DC TODAY. WILL UPDATE PT AND FAMILY ALSO. WORKING WITH THERAPY
--- NOTE | 2017-08-28 13:17 | NUR ---
RECEIVED PT CARE 0700. PATIENT IS ALERT AND ORIENTED X4. VSS. PRODUCE WEIGHER TRACING SR. PATIENT UP WITH ASSIST X2 AND A WALKER. NWB TO RIGHT LOWER EXTREMITY. AM ASSESSMENT CHARTED. MEDS PER MAR. RATES PAIN 9/10 TO THE RIGHT LOWER LEG. PRN PAIN MEDICATION GIVEN WITH PARTIAL RELIEF. PAIN MEDICATIONS ADJUSTED PER DR PADILLA FOR BETTER PAIN CONTROL WITHOUT THE NEED FOR IV MEDICATION. PT/OT WORKING WITH PATIENT TODAY. UP IN THE RECLINER FOR A FEW HOURS THIS AM. PATIENT TOLERATED WELL BUT RATES PAIN 10/10 WITH ANY MOVEMENT/ACTIVITY. REPORT CALLED TO JEN SANCHEZ ON JSSI, PATIENT TRANSFERRING TO ROOM 117. ALL BELONGINGS ARE PACKED AND LEAVING WITH THE PATIENT.
[2017-08-28 16:00] VITALS: BP 127/46
[2017-08-28 23:35] VITALS: BP 88/41
[2017-08-29 04:16] VITALS: BP 133/39
--- NOTE | 2017-08-29 06:47 | NUR ---
ASSUMED CARE OF PT AT 1900 PT ALERT AND ORIENTED X4 ASSESSMENT STABLE PTS BP 88/41 AT [address] PATIÑO 1L BOLUS X1 PT SLEPT THROUGH THE NIGHT WILL CONTINUE PLAN OF CARE
[2017-08-29 08:03] VITALS: BP 145/37
--- NOTE | 2017-08-29 11:22 | NUR ---
PT.TO BE DISCHARGED TO [facility] TODAY. NOTIFIED MILLIE/MILES. FAXED UPDATED CLINICALS TO HER AND DISCHARGE ORDERS. SHE WILL ARRANGE WC VAN FOR 1430. PT.HAS O2 AND NEEDS WC. CHART COPIED TO GO WITH PT. LAURA HILL WILL CALL REPORT. NOTIFIED PT.AND DAUGHTER.
[2017-08-29] MEDS ORDERED: OXYCODONE HCL 55 MG PO (12:41)
[2017-08-29] MEDS ORDERED: DURAGESIC25 MCG/HR TRANSDERM (12:42)
[2017-08-29] MEDS ORDERED: HYDROCODONE-AP1 EAC6 PO (12:42)
[2017-08-29] MEDS ORDERED: CARDIZEM CD120 MG PO (12:45)
[2017-08-29] MEDS ORDERED: LEVAQUIN 750 M750 MG PO (12:51)
[2017-08-29] MEDS ORDERED: PROBIOTIC1 EAC1 PO (13:16)
[2017-08-29 13:52] VITALS: BP 145/37
--- NOTE | 2017-08-29 14:59 | NUR ---
ASSUMED CARE OF PATIENT AFTER REPORT THIS MORNING. PATIENT AWAKE, ALERT, AND ORIENTED APPROPRIATELY. PHYSICAL ASSESSMENT COMPLETED AND CHARTED. COMPLAINED OF PAIN. GIVEN SCHEDULED MEDICATIONS, SEE EMAR FOR DOCUMENTATION. VITAL SIGNS STABLE. OXYGEN SATURATION WITHIN NORMAL LIMITS ON 4 LPM PER NASAL CANULA. RECEIVED ORDERS TO DISCHARGE PATIENT TO [facility]. CALLED REPORT TO LAURA LANGLEY AT [facility]. DISCHARGE PAPERWORK COMPLETED AND SIGNED BY ALL APPROPRIATE PARTIES, ON PATIENT'S CHART. TRANSPORTATION HERE AT THIS TIME. IV DISCONTINUED. PATIENT DISCHARGED AT THIS TIME.
--- NOTE | 2017-09-18 14:42 | CON ---
[address] [address] CONSULTATION Name: MAVIS RIZZO Room: [address]#: [id number] Admission: 08/19/17 Attend Phys: Ryder Diaz Discharge: 08/29/17 Date of : 44 Report #: [id number] THIS REPORT FOR: //name// CC: Ajay Cisse DATE OF SERVICE: 08/23/2017 REASON FOR CONSULTATION: Evaluation and recommendations regarding post-acute rehabilitation in a 77-year-old female who was admitted status post fall from standing height in her own home sustaining a comminuted T-shaped fracture in the distal right femur, status post ORIF. In the postoperative period, she has been seen by physical therapy and is noted to be maximum assistance. It sounds like her previous level of function was modified independent with activities of daily living. She does live at home alone in an apartment, but does have several daughters in the area that can help. She does wear oxygen at night. Currently, at this point in the consultation, awaiting occupational therapy notes as well as speech and language pathology recommendations. MEDICATIONS: Reviewed by myself. ALLERGIES: PEANUT, PENICILLIN, SULFA, CODEINE, MORPHINE. FAMILY HISTORY: Cancer. SOCIAL HISTORY: No tobacco, alcohol or illicit drug use. 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 REVIEW OF SYSTEMS: A 14-point review of systems was done today and is negative except as mentioned in the HPI, specifically no fever, chest pain, shortness of breath, abdominal pain or distention. PHYSICAL EXAMINATION: GENERAL: Alert, oriented, in no apparent distress. VITAL SIGNS: Reviewed and are stable. HEENT: Head atraumatic, normocephalic. Normocephalic. Pupils equal, round, reactive. ABDOMEN: Soft, nontender, nondistended. NEUROLOGIC: Cranial nerves 2-12 are grossly intact with no focal neuro deficits, 5/5 strength in the bilateral upper and lower extremities. SKIN: Warm and dry. No [place] [address] CONSULTATION Name: MAVIS RIZZO Room: [address]#: [id number] Admission: 08/19/17 Attend Phys: Ryder Diaz Discharge: 08/29/17 Date of : 44 Report #: [id number] ASSESSMENT: 1. Status post right distal femur fracture post open reduction and internal fixation. 2. Significant alterations in activities of daily living from previous to baseline. 3. Multiple medical comorbidities. PLAN: Await occupational therapy notes and speech and language pathology notes. Should she be able to progress with physical and occupational therapy, she may be a good acute inpatient rehabilitative candidate and we will follow her daily during her acute hospitalization and make recommendations as they become apparent. <ELECTRONICALLY SIGNED> By: Natalia Gallo DO 09/18/17 1442 [id number] Gallo DO /nt
--- NOTE | 2017-10-31 20:20 | OP ---
[address] [address] OPERATIVE REPORT Name: MAVIS RIZZO Room: [address]#: [id number] Admission: 08/19/17 Attend Phys: Ryder Diaz Discharge: 08/29/17 Date of : 44 Report #: [id number] THIS REPORT FOR: //name// CC: Ajay Cisse DATE OF SERVICE: 08/20/2017 PREOPERATIVE DIAGNOSIS: Right comminuted distal femur fracture, intraarticular and closed. POSTOPERATIVE DIAGNOSIS: Right comminuted distal femur fracture, intraarticular and closed. PROCEDURE: Open reduction and internal fixation of right distal femur fracture. SURGEON: Celestino Jaime DO APARTMENT HOUSE MANAGER: Renny Vilchis DO ANESTHESIA: General. ESTIMATED BLOOD LOSS: 50 mL COMPLICATIONS: None. DRAINS: None. SPECIMEN REMOVED: None. ORTHOPEDIC IMPLANTS: Synthes distal femur locking plate with appropriate length screws. ANTIBIOTICS: Ancef 1 gram IV preoperatively. CONDITION: The patient is stable to PACU. INDICATIONS: The patient is a pleasant 77-year-old female admitted to [facility] yesterday 08/19/2017 after sustaining an injury to her right lower leg. She sustained a fall resulting in inability to weightbear and severe pain. She was brought to the Emergency Room, x-rays were obtained demonstrating comminuted distal femur fracture. We were consulted for further evaluation and treatment. I did review her films with her and her family and recommended open reduction and internal fixation. I discussed procedure, risks, benefits, complications, and indications in detail with her. Risks discussed include but not limited to infection, neurovascular injury, continued or [address] [place] [address] OPERATIVE REPORT Name: IRENE RIZZOFREDIS Coleman Room: [address]#: [id number] Admission: 08/19/17 Attend Phys: Ryder Diaz Discharge: 08/29/17 Date of : 44 Report #: [id number] worsening pain, nonunion, malunion, hardware failure, need for further surgery, painful hardware, DVT, PE and anesthesia complications. She did express understanding and wished to proceed with surgery. DESCRIPTION OF PROCEDURE: After consent was obtained, the patient was taken to the operative suite and placed in the supine position on the operating room table. She was given benefit of general anesthesia. A well-padded bump was placed under the right lower extremity. The right leg was then sterilely prepped and draped in usual fashion. Preop timeout was obtained to confirm the correct patient, procedure and operative site. Surgery began with approximately 12 cm incision in a standard lateral approach to the distal femur. Electrocautery dissection was taken down to the level of the tensor fascia and incision was made in line with the skin incision through the fascia exposing the vastus lateralis below, this was reflected anteriorly. We then exposed the distal femur and the fracture site again with electrocautery. She had a fair amount of comminution at this area. The fracture hematoma was thoroughly irrigated. Gentle traction on the leg, plantar fracture was fairly good alignment. She did have an intraarticular split, which we went ahead and clamped for compression and placed a 4.5 cortical screw perpendicular across the fracture. This gave us good compression at the intraarticular split with minimal articular step-off. At this time, with manual reduction held, a distal femur locking plate was provisionally placed over the fracture site and held in place with K wires. This was confirmed to be in good position on both AP and lateral views with x-ray and with good reduction. We placed 1 distal nonlocking screw through the plate for compression and then 1 proximal nonlocking screw also for compression. We then proceeded to fill the distal femur plate with locking screws of appropriate length followed by 2 more locking screws proximally. All screws were drilled and measured under x-ray visualization. Final pictures were taken, noting good position of all hardware and drape fracture reduction in both AP and lateral views. K-wires were removed. Knee was taken through a gentle range of motion and the fracture was stable. The wound was then thoroughly irrigated with sterile saline. Tensor fascia was closed with #1 Vicryl in [id number] fashion. The knee was again thoroughly irrigated. Subcutaneous tissue was closed with 2-0 Vicryl in inverted interrupted fashion followed by yadi on the skin. Sterile dressing was applied in the form of Xeroform, 4 x 4s, soft roll, Nils bandage and 3 hinge brace. She did tolerate the procedure well without complication. She was taken to recovery room in stable condition. All needle and sponge counts correct x 2 at the end of the procedure. She will be readmitted for postop pain control as well as physical therapy, but we will restart her Eliquis for DVT prophylaxis. She will be nonweightbearing. [address] [address] OPERATIVE REPORT Name: MAVIS RIZZO Room: [address] [place] .R.#: [id number] Admission: 08/19/17 Attend Phys: Ryder Diaz Discharge: 08/29/17 Date of : 44 Report #: [id number] We will allow gentle range of motion of the knee in the brace only. She will likely need skilled care for quite some time as she does live alone. <ELECTRONICALLY SIGNED> By: Celestino Jaime DO 10/31/172019 1740 1907Daadelaida Jaime DO /nt
== END 2017-08-29 15:00 | DRG 480 ==
LOC: M.ERS 06:15 → M.ORTHSURG 07:26 → M.TBA-ER 07:26 → M.ORTHSURG 08:59 → M.3W 08-20 19:08 → M.2W 08-22 16:42 → M.ORTHSURG 08-28 13:39
PROVIDERS: Anesthesiology; Emergency Medicine; Emergency Medicine Emergency Medical Services; Family Medicine; ADMIT Internal Medicine
PROC: 0QS804Z Reposition Right Femoral Shaft with Internal Fixation Device, Open Approach (ICD-10-PCS; principal; 2017-08-20)
PROC: 30233N1 Transfusion of Nonautologous Red Blood Cells into Peripheral Vein, Percutaneous Approach (ICD-10-PCS; 2017-08-20)
DX: S72.451A Displaced supracondylar fracture without intracondylar extension of lower end of right femur, initial encounter for closed fracture (principal); E43 Unspecified severe protein-calorie malnutrition; J96.20 Acute and chronic respiratory failure, unspecified whether with hypoxia or hypercapnia; N39.0 Urinary tract infection, site not specified; R65.10 Systemic inflammatory response syndrome (SIRS) of non-infectious origin without acute organ dysfunction; I47.1 Supraventricular tachycardia; J44.9 Chronic obstructive pulmonary disease, unspecified; Z96.641 Presence of right artificial hip joint; M81.0 Age-related osteoporosis without current pathological fracture; H35.30 Unspecified macular degeneration; I50.9 Heart failure, unspecified; I11.0 Hypertensive heart disease with heart failure; I48.91 Unspecified atrial fibrillation; E78.5 Hyperlipidemia, unspecified; E11.649 Type 2 diabetes mellitus with hypoglycemia without coma; B96.1 Klebsiella pneumoniae [K. pneumoniae] as the cause of diseases classified elsewhere; Z80.9 Family history of malignant neoplasm, unspecified; Z90.710 Acquired absence of both cervix and uterus; Z85.41 Personal history of malignant neoplasm of cervix uteri; Z85.3 Personal history of malignant neoplasm of breast; Z88.0 Allergy status to penicillin; Z88.2 Allergy status to sulfonamides; Z88.5 Allergy status to narcotic agent; Z91.010 Allergy to peanuts; Z68.27 Body mass index [BMI] 27.0-27.9, adult